=== PATIENT | male | born 1930 | race Caucasian/White ===

== ENCOUNTER 2016-10-02 17:37 | Emergency (ER) | payer MEDICARE, BC ==
[~2016-10-02] VITALS: Ht 175.3 cm; Wt 86.0 kg
[~2016-10-02 17:37] MED LIST: ASPI-1159 PO; ATOR20TA65 PO; CHOL100026 GT; MULT-1146 PO; OCD PO
[2016-10-03] MEDS ORDERED: ACETAMINOPHEN 325MG TABLET PO ONE
[2016-10-03 00:39] LABS: BASOPHILS % 1.1 % (0.0-2.0); EOSINOPHILS % 2.2 % (0.0-5.0); HEMATOCRIT. 35.5 % (42.0-52.0); HEMOGLOBIN. 11.9 g/dL (14.0-18.0); LYMPHOCYTES % 18.2 % (20.0-50.0); MEAN CORPUSCULAR VOLUME 92.3 fL (80.0-94.0); MEAN PLATELET VOLUME 9.4 fl (7.4-10.4); MONOCYTES % 9.3 % (2.0-8.0); NEUTROPHILS % 69.2 % (40.0-76.0); PLATELET 198 x1000/uL (130-400); RED BLOOD CELL COUNT 3.85 mill/uL (4.7-6.1); RED CELL DISTRIBUTION WIDTH 13.9 % (11.6-14.6)
[2016-10-03 00:53] LABS: CHLORIDE 105 mEq/L (98-107)
[2016-10-03 01:01] LABS: CARBON DIOXIDE 25 mEq/L (21-32)
[2016-10-03 03:01] VITALS: BP 145/59
== END 2016-10-03 04:25 | disposition home or self-care (01) ==
LOC: ER 22:02
DX: M70.31 Other bursitis of elbow, right elbow (principal); Y93.9 Activity, unspecified; I10 Essential (primary) hypertension; E78.00 Pure hypercholesterolemia, unspecified; Z79.82 Long term (current) use of aspirin; Z79.899 Other long term (current) drug therapy
CPT/HCPCS: 36415; 73080; 80048; 84550; 85025; 85651; 99285

== ENCOUNTER 2017-03-22 07:01 | Day surgery (SDC) | payer BC, MEDICARE ==
[~2017-03-22] VITALS: Ht 33 cm; Wt 0.5 kg
[~2017-03-22 07:01] MED LIST changes: -CHOL100026 GT; +CHOL100044 GT
[2017-03-22] MEDS ORDERED: NICARDIPINE 100MCG/ML 10ML VIAL (CATH LAB) IV ONE (09:56)
[2017-03-22] MEDS ORDERED: NITROGLYCERIN 50MCG/ML 10ML VIAL (CATH LAB) IV ONE (09:56)
[2017-03-22] MEDS ORDERED: HEPARIN SODIUM 1,000 UNIT/1ML VIAL IV ONE (09:56)
[2017-03-22] MEDS ORDERED: NEBI5TAB3 PO (10:51)
[2017-03-22] MEDS ORDERED: AMLO2.5T45 PO (10:52)
[2017-03-22 11:11] LABS: BASOPHILS % 0.9 % (0.0-2.0); EOSINOPHILS % 0.9 % (0.0-5.0); HEMATOCRIT. 40.4 % (42.0-52.0); HEMOGLOBIN. 13.3 g/dL (14.0-18.0); LYMPHOCYTES % 24.3 % (20.0-50.0); MEAN CORPUSCULAR HEMOGLOBIN 30.7 pg (28.0-32.0); MEAN CORPUSCULAR VOLUME 93.1 fL (80.0-94.0); MEAN PLATELET VOLUME 8.8 fl (7.4-10.4); MONOCYTES % 5.3 % (2.0-8.0); NEUTROPHILS % 68.6 % (40.0-76.0); PLATELET 235 x1000/uL (130-400); RED BLOOD CELL COUNT 4.34 mill/uL (4.7-6.1); RED CELL DISTRIBUTION WIDTH 13.6 % (11.6-14.6)
[2017-03-22 11:19] LABS: PARTIAL THROMBOPLASTIN TIME 27.7 sec (23.4-31.0); PROTHROMBIN TIME 10.6 sec (9.4-11.6)
[2017-03-22 11:22] LABS: CARBON DIOXIDE 29 mEq/L (21-32); CHLORIDE 106 mEq/L (98-107)
[2017-03-22] MEDS ORDERED: MIDAZOLAM HCL 2 MG/2 ML VIAL ONE (11:50)
[2017-03-22] MEDS ORDERED: ASPIRIN/SOD BICARB/CITRIC ACID 324MG TAB EFF ONE (11:51)
[2017-03-22] MEDS ORDERED: IODIXANOL 320MG/ML 100 ML BOTTLE IV ONE (11:51)
[2017-03-22] MEDS ORDERED: FENTANYL CITRATE/PF 50MCG/ML 2ML VIAL ONE (11:51)
[2017-03-22] MEDS ORDERED: LIDOCAINE HCL 1% 20ML VIAL (Pyxis) INJ ONE (11:53)
[2017-03-22] MEDS ORDERED: ACETAMINOPHEN 325MG TABLET PO PRN (12:30)
[2017-03-22] MEDS ORDERED: ONDANSETRON HCL 4MG/2ML VIAL IV PRN (12:30)
[2017-03-22] MEDS ORDERED: MORPHINE SULFATE 4 MG/ML CPJ (NOT FOR IM USE) IV PRN (12:30)
[2017-03-22] MEDS ORDERED: ATROPINE SULFATE 1MG/10ML SYR IV PRN (12:30)
== END 2017-03-22 16:05 | disposition home or self-care (01) ==
LOC: CCL 07:01
PROVIDERS: ATTEND Specialist
DX: I25.10 Atherosclerotic heart disease of native coronary artery without angina pectoris (principal); I11.9 Hypertensive heart disease without heart failure; I25.2 Old myocardial infarction; I49.3 Ventricular premature depolarization; I65.29 Occlusion and stenosis of unspecified carotid artery; I73.9 Peripheral vascular disease, unspecified; D63.8 Anemia in other chronic diseases classified elsewhere; E78.00 Pure hypercholesterolemia, unspecified; Z79.82 Long term (current) use of aspirin; Z87.891 Personal history of nicotine dependence; Z79.899 Other long term (current) drug therapy; Z98.890 Other specified postprocedural states
CPT/HCPCS: 36415; 80048; 85025; 85610; 85730; 93458; 99152; 99153; C1769; C1887; C1893; J1644; J2250; J3010; J3490; Q9967

== ENCOUNTER → 2019-09-17 | Outpatient (CLI) | payer MEDICARE ==
[~2019-09-17] MED LIST changes: +AMLO2.5T45 PO; +ASCO-339 MT; -ASPI-1159 PO; +ASPI-1497 PO; +NEBI5TAB3 PO; +OMEG1CAP94 PO; +UBID300C MT
== END | disposition home or self-care (01) ==
LOC: LAB 08:57
PROVIDERS: ATTEND Specialist
DX: R05 Cough (principal); Z20.828 Contact with and (suspected) exposure to other viral communicable diseases
CPT/HCPCS: C9803; U0003

== ENCOUNTER 2019-09-18 06:32 | Day surgery (SDC) | payer MEDICARE ==
[2019-09-18] MEDS ORDERED: MIDAZOLAM HCL 2 MG/2 ML VIAL ONE (08:02)
[2019-09-18] MEDS ORDERED: LIDOCAINE HCL 1% 20ML VIAL (Pyxis) INJ ONE (08:02)
[2019-09-18] MEDS ORDERED: FENTANYL CITRATE/PF 50MCG/ML 2ML VIAL ONE (08:02)
[2019-09-18] MEDS ORDERED: ASPIRIN/SOD BICARB/CITRIC ACID 324MG TAB EFF ONE (08:02)
[2019-09-18] MEDS ORDERED: IODIXANOL 320MG/ML 100 ML BOTTLE IV ONE (08:03)
[2019-09-18] MEDS ORDERED: ACETAMINOPHEN 325MG TABLET PO PRN (09:45)
[2019-09-18] MEDS ORDERED: MORPHINE SULFATE 2 MG/ML CPJ (NOT FOR IM USE) IV PRN (09:45)
[2019-09-18] MEDS ORDERED: NITROGLYCERIN 50MCG/ML 10ML VIAL (CATH LAB) IV ONE (09:49)
[2019-09-18] MEDS ORDERED: NICARDIPINE 100MCG/ML 10ML VIAL (CATH LAB) IV ONE (09:49)
[2019-09-18] MEDS ORDERED: HEPARIN SODIUM 1,000 UNIT/1ML VIAL IV ONE (09:49)
== END 2019-09-18 16:00 | disposition home or self-care (01) ==
LOC: CCL 06:32
PROVIDERS: ATTEND Specialist
DX: I25.10 Atherosclerotic heart disease of native coronary artery without angina pectoris (principal); Z79.82 Long term (current) use of aspirin; Z79.899 Other long term (current) drug therapy; Z82.49 Family history of ischemic heart disease and other diseases of the circulatory system
CPT/HCPCS: 93458; 93571; C1769; C1887; C1893; J1644; J2250; J3010; J3490; Q9967

== ENCOUNTER → 2019-09-24 | Outpatient (CLI) | payer MEDICARE ==
[~2019-09-24] MED LIST changes: +ICOS1CAP PO
== END | disposition home or self-care (01) ==
LOC: LAB 09:15
PROVIDERS: ATTEND Specialist
DX: R05 Cough (principal); Z20.828 Contact with and (suspected) exposure to other viral communicable diseases
CPT/HCPCS: C9803; U0003

== ENCOUNTER 2019-09-25 06:32 | Inpatient (IN) | payer MEDICARE ==
[2019-09-25] VITALS (8 sets, daily range): BP systolic 111–145; BP diastolic 55–67
[~2019-09-25] VITALS: Ht 170.2 cm; Wt 66.4 kg
[~2019-09-25 06:32] MED LIST changes: -ICOS1CAP PO
[2019-09-25] MEDS ORDERED: FENTANYL CITRATE/PF 50MCG/ML 2ML VIAL ONE (07:35)
[2019-09-25] MEDS ORDERED: LIDOCAINE HCL 1% 20ML VIAL (Pyxis) INJ ONE (07:35)
[2019-09-25] MEDS ORDERED: MIDAZOLAM HCL 2 MG/2 ML VIAL ONE ×2 (07:35→09:02)
[2019-09-25] MEDS ORDERED: ASPIRIN/SOD BICARB/CITRIC ACID 324MG TAB EFF ONE (07:36)
[2019-09-25] MEDS ORDERED: IODIXANOL 320MG/ML 100 ML BOTTLE IV ONE (07:36)
[2019-09-25] MEDS ORDERED: IOHEXOL-300 100 ML BOTTLE ONE (07:37)
[2019-09-25] MEDS ORDERED: ICOS1CAP PO (07:42)
[2019-09-25] MEDS ORDERED: CLOPIDOGREL 75MG TABLET ONE (09:01)
[2019-09-25] MEDS ORDERED: ATROPINE SULFATE 1MG/10ML SYR IV PRN (09:15)
[2019-09-25] MEDS ORDERED: MORPHINE SULFATE 2 MG/ML CPJ (NOT FOR IM USE) IV PRN (09:15)
[2019-09-25] MEDS ORDERED: ONDANSETRON HCL 4MG/2ML INJ IV PRN (09:15)
[2019-09-25] MEDS ORDERED: ACETAMINOPHEN 325MG TABLET PO PRN (09:15)
[2019-09-25] MEDS ORDERED: SODIUM CHLORIDE 0.45% 1,000 ML IV ONE (09:45)
[2019-09-25] MEDS: NEBIVOLOL HCL 5 MG TABLET PO SCH (09:45)
[2019-09-25] MEDS ORDERED: CLOPIDOGREL 75MG TABLET PO NR (09:45)
[2019-09-25] MEDS ORDERED: ATORVASTATIN CALCIUM 20MG TABLET PO SCH (21:00)
[2019-09-25] MEDS: AMLODIPINE 2.5MG TABLET PO SCH (21:11)
[2019-09-26] VITALS: BP 123/66
[2019-09-26 02:00] VITALS: BP 129/64
[2019-09-26 04:00] VITALS: BP 131/49
[2019-09-26 06:00] VITALS: BP 148/57
[2019-09-26 06:57] LABS: CHLORIDE 109 mEq/L (98-107)
[2019-09-26 07:10] LABS: BASOPHILS % 0.8 % (0.0-2.0); EOSINOPHILS % 4.1 % (0.0-5.0); HEMATOCRIT. 39.1 % (42.0-52.0); HEMOGLOBIN. 13.2 g/dL (14.0-18.0); LYMPHOCYTES % 24.1 % (20.0-50.0); MEAN CORPUSCULAR HEMOGLOBIN 31.9 pg (28.0-32.0); MEAN CORPUSCULAR VOLUME 94.6 fL (80.0-94.0); MEAN PLATELET VOLUME 9.4 fl (7.4-10.4); MONOCYTES % 7.6 % (2.0-8.0); NEUTROPHILS % 63.4 % (40.0-76.0); PLATELET 180 x1000/uL (130-400); RED BLOOD CELL COUNT 4.14 mill/uL (4.7-6.1); RED CELL DISTRIBUTION WIDTH 13.2 % (11.6-14.6)
[2019-09-26 08:00] VITALS: BP 131/67
[2019-09-26] MEDS: NEBIVOLOL HCL 5 MG TABLET PO SCH (08:35)
[2019-09-26] MEDS: AMLODIPINE 2.5MG TABLET PO SCH (08:35)
[2019-09-26] MEDS ORDERED: ASPIRIN 81MG TABLET PO SCH (09:00)
[2019-09-26] MEDS ORDERED: CLOPIDOGREL 75MG TABLET PO SCH (09:00)
[2019-09-26 10:00] VITALS: BP 150/70
== END 2019-09-26 12:52 | disposition home or self-care (01) | DRG 247 ==
LOC: CCL 06:32 → 3WST 06:33
PROVIDERS: ADMIT Specialist; ATTEND Specialist
PROC: 027034Z Dilation of Coronary Artery, One Artery with Drug-eluting Intraluminal Device, Percutaneous Approach (ICD-10-PCS; principal; 2019-09-25)
PROC: 4A023N7 Measurement of Cardiac Sampling and Pressure, Left Heart, Percutaneous Approach (ICD-10-PCS; 2019-09-25)
PROC: B2101ZZ Fluoroscopy of Single Coronary Artery using Low Osmolar Contrast (ICD-10-PCS; 2019-09-25)
PROC: 4A033BC Measurement of Arterial Pressure, Coronary, Percutaneous Approach (ICD-10-PCS; 2019-09-25)
DX: I25.10 Atherosclerotic heart disease of native coronary artery without angina pectoris (principal); I49.3 Ventricular premature depolarization; I10 Essential (primary) hypertension; I70.209 Unspecified atherosclerosis of native arteries of extremities, unspecified extremity; E78.5 Hyperlipidemia, unspecified; Z79.899 Other long term (current) drug therapy; Z79.82 Long term (current) use of aspirin
CPT/HCPCS: 36415; 80048; 85025; 85347; 92928; 93005; 93454; C1760; C1769; C1874; C1887; C1893; J1644; J2250; J3010; J3490; Q9967

== ENCOUNTER 2021-02-21 20:54 | Inpatient (IN) | payer MEDICARE ==
[~2021-02-21] VITALS: Ht 177.8 cm; Wt 86.2 kg
[~2021-02-21 20:54] MED LIST changes: +ICOS1CAP PO
[2021-02-21] MEDS ORDERED: ACETAMINOPHEN WITH CODEINE 300/30MG TABLET PO ONE (21:00)
[2021-02-21 23:14] LABS: BASOPHILS % 0.4 % (0.0-2.0); EOSINOPHILS % 1.3 % (0.0-5.0); HEMATOCRIT. 39.4 % (42.0-52.0); LYMPHOCYTES % 8.8 % (20.0-50.0); MEAN CORPUSCULAR HEMOGLOBIN 31.3 pg (28.0-32.0); MEAN CORPUSCULAR VOLUME 94.8 fL (80.0-94.0); MEAN PLATELET VOLUME 8.6 fl (7.4-10.4); MONOCYTES % 4.6 % (2.0-8.0); NEUTROPHILS % 84.9 % (40.0-76.0); PLATELET 182 x1000/uL (130-400); RED BLOOD CELL COUNT 4.15 mill/uL (4.7-6.1)
[2021-02-21 23:18] LABS: CHLORIDE 115 mEq/L (98-107)
[2021-02-22 00:12] LABS: CLARITY URINE CLEAR (CLEAR); COLOR URINE YELLOW (YELLOW); KETONES URINE NEGATIVE (NEGATIVE); LEUKOCYTE ESTERASE URINE NEGATIVE (NEGATIVE); NITRITE URINE NEGATIVE (NEGATIVE); OCCULT BLOOD URINE NEGATIVE (NEGATIVE); PH URINE 6.5 (4.5-8.0); PROTEIN URINE NEGATIVE (NEGATIVE); SPECIFIC GRAVITY URINE 1.014 (1.005-1.030); UROBILINOGEN URINE 0.2 E.U./dL (0.2-1.0)
[2021-02-22] MEDS ORDERED: CLONIDINE 0.1MG TABLET PO PRN (05:15)
[2021-02-22 05:20] VITALS: BP 150/67
[2021-02-22] MEDS: DEXT 5%/0.9% NACL 1,000 ML IV SCH ×2 (06:33→21:48)
[2021-02-22 08:00] VITALS: BP 150/65
[2021-02-22] MEDS: MORPHINE SULFATE 2 MG/ML CPJ (NOT FOR IM USE) IV PRN ×3 (08:39→18:49)
[2021-02-22] MEDS: ENOXAPARIN 40MG/0.4ML SYR SUBCUT SCH (09:00)
[2021-02-22] MEDS ORDERED: NEBIVOLOL HCL 5 MG TABLET PO SCH (11:00)
[2021-02-22] MEDS ORDERED: CHOLECALCIFEROL (D3) 1000 UNIT TABLET PO SCH (11:00)
[2021-02-22] MEDS ORDERED: ASCORBIC ACID 500 MG TABLET PO SCH (11:00)
[2021-02-22] MEDS: CHOLECALCIFEROL (D3) 1000 UNIT TABLET PO SCH (11:50)
[2021-02-22] MEDS: AMLODIPINE 2.5MG TABLET PO SCH ×2 (11:50→21:48)
[2021-02-22] MEDS: ASCORBIC ACID 500 MG TABLET PO SCH (11:50)
[2021-02-22] MEDS: CALCIUM CARBONATE/VITAMIN D3 500MG TABLET PO SCH (11:51)
[2021-02-22] MEDS: NEBIVOLOL HCL 5 MG TABLET PO SCH (11:51)
[2021-02-22 12:00] VITALS: BP 99/56
[2021-02-22 12:17] LABS: BASOPHILS % 0.7 % (0.0-2.0); HEMOGLOBIN. 12.7 g/dL (14.0-18.0); LYMPHOCYTES % 14.6 % (20.0-50.0); MEAN CORPUSCULAR HEMOGLOBIN 31.2 pg (28.0-32.0); MEAN CORPUSCULAR VOLUME 93.8 fL (80.0-94.0); MEAN PLATELET VOLUME 8.7 fl (7.4-10.4); MONOCYTES % 7.8 % (2.0-8.0); NEUTROPHILS % 73.9 % (40.0-76.0); PLATELET 175 x1000/uL (130-400); RED BLOOD CELL COUNT 4.05 mill/uL (4.7-6.1)
[2021-02-22 12:22] LABS: CHLORIDE 112 mEq/L (98-107)
[2021-02-22 16:00] VITALS: BP 140/51
[2021-02-22] MEDS ORDERED: AMLODIPINE 2.5MG TABLET PO SCH (17:00)
[2021-02-22] MEDS ORDERED: prosvent (19:31)
[2021-02-22] MEDS ORDERED: PRAV80TA21 MT (19:31)
[2021-02-22] MEDS ORDERED: CLOP75TA33 PO (19:31)
[2021-02-22] MEDS ORDERED: NON FORMULARY PATIENT HOME MED XX SCH (19:45)
[2021-02-22 20:00] VITALS: BP 146/53
[2021-02-22] MEDS ORDERED: ATORVASTATIN CALCIUM 20MG TABLET PO SCH ×2 (21:00)
[2021-02-23] VITALS: BP 140/57
[2021-02-23 04:00] VITALS: BP 103/64
[2021-02-23] MEDS ORDERED: NALOXONE HCL 0.4MG/ML VIAL IV PRN (07:15)
[2021-02-23 07:34] LABS: BASOPHILS % 0.8 % (0.0-2.0); EOSINOPHILS % 7.4 % (0.0-5.0); HEMATOCRIT. 36.5 % (42.0-52.0); HEMOGLOBIN. 12.4 g/dL (14.0-18.0); LYMPHOCYTES % 15.4 % (20.0-50.0); MEAN CORPUSCULAR HEMOGLOBIN 32.1 pg (28.0-32.0); MEAN CORPUSCULAR VOLUME 94.8 fL (80.0-94.0); MEAN PLATELET VOLUME 9.2 fl (7.4-10.4); MONOCYTES % 9.5 % (2.0-8.0); NEUTROPHILS % 66.9 % (40.0-76.0); PLATELET 160 x1000/uL (130-400); RED BLOOD CELL COUNT 3.86 mill/uL (4.7-6.1); RED CELL DISTRIBUTION WIDTH 13.1 % (11.6-14.6)
[2021-02-23 07:57] LABS: CHLORIDE 111 mEq/L (98-107)
[2021-02-23 08:00] VITALS: BP 148/65
[2021-02-23] MEDS: MORPHINE SULFATE 2 MG/ML CPJ (NOT FOR IM USE) IV PRN ×2 (08:13→12:29)
[2021-02-23] MEDS: ENOXAPARIN 40MG/0.4ML SYR SUBCUT SCH (09:00)
[2021-02-23] MEDS: CALCIUM CARBONATE/VITAMIN D3 500MG TABLET PO SCH (09:19)
[2021-02-23] MEDS: ASCORBIC ACID 500 MG TABLET PO SCH (09:20)
[2021-02-23] MEDS: AMLODIPINE 2.5MG TABLET PO SCH ×2 (09:20→20:41)
[2021-02-23] MEDS: CHOLECALCIFEROL (D3) 1000 UNIT TABLET PO SCH (09:20)
[2021-02-23] MEDS: NEBIVOLOL HCL 5 MG TABLET PO SCH (09:20)
[2021-02-23 12:00] VITALS: BP 128/73
[2021-02-23] MEDS: DEXT 5%/0.9% NACL 1,000 ML IV SCH ×2 (14:35→20:42)
[2021-02-23 16:00] VITALS: BP 137/62
[2021-02-23 20:00] VITALS: BP 152/71
[2021-02-23 22:07] LABS: INR 1.1; PROTHROMBIN TIME 11.3 sec (9.6-11.0)
[2021-02-24] VITALS: BP 163/60
[2021-02-24 04:00] VITALS: BP 141/63
[2021-02-24] MEDS ORDERED: BACITRACIN 15GM TUBE TOP ONE (06:51)
[2021-02-24] MEDS ORDERED: LIDOCAINE HCL/EPINEPHRINE 1%-EPI 1:100,000 20 ML VIAL ONE (06:51)
[2021-02-24] MEDS ORDERED: POLYMYXIN B SULFATE 500000 UNITS/VIAL ONE (06:52)
[2021-02-24] MEDS ORDERED: VANCOMYCIN HCL 1 GM/VIAL ONE (06:52)
[2021-02-24] MEDS ORDERED: SKIN ADHESIVE 0.7 GM EA TOP ONE (06:53)
[2021-02-24] MEDS ORDERED: LIDOCAINE HCL 1% 10 MG/ML 10ML VIAL ONE (07:32)
[2021-02-24] MEDS ORDERED: MIDAZOLAM HCL 2 MG/2 ML VIAL ONE (07:32)
[2021-02-24] MEDS ORDERED: FENTANYL CITRATE/PF 50MCG/ML 2ML VIAL ONE (07:32)
[2021-02-24] MEDS ORDERED: PROPOFOL 200MG/20ML VIAL IV ONE (07:32)
[2021-02-24] MEDS ORDERED: CEFAZOLIN SODIUM 1000MG/VIAL ONE (07:57)
[2021-02-24] MEDS ORDERED: EPHEDRINE SULFATE 50MG/ML VIAL ONE (08:42)
[2021-02-24] MEDS: AMLODIPINE 2.5MG TABLET PO SCH ×2 (09:00→21:00)
[2021-02-24] MEDS: ASCORBIC ACID 500 MG TABLET PO SCH (09:00)
[2021-02-24] MEDS: CHOLECALCIFEROL (D3) 1000 UNIT TABLET PO SCH (09:00)
[2021-02-24] MEDS ORDERED: FENTANYL CITRATE/PF 50MCG/ML 2ML VIAL IV PRN (09:00)
[2021-02-24] MEDS ORDERED: HYDROMORPHONE HCL/PF 2MG/ML CPJ IV PRN (09:00)
[2021-02-24] MEDS: ENOXAPARIN 40MG/0.4ML SYR SUBCUT SCH (09:00)
[2021-02-24] MEDS: CALCIUM CARBONATE/VITAMIN D3 500MG TABLET PO SCH (09:00)
[2021-02-24] MEDS: NEBIVOLOL HCL 5 MG TABLET PO SCH (09:00)
[2021-02-24] MEDS ORDERED: ONDANSETRON HCL 4MG/2ML INJ IV PRN (09:00)
[2021-02-24 12:00] VITALS: BP 119/68
[2021-02-24] MEDS ORDERED: CEFAZOLIN SODIUM 1000MG/VIAL IV SCH (14:00)
[2021-02-24] MEDS: CEFAZOLIN 1000MG PREMIX 50 ML IV SCH ×2 (14:41→21:47)
[2021-02-24 16:00] VITALS: BP 115/56
[2021-02-24 20:00] VITALS: BP 112/56
[2021-02-24] MEDS: DEXT 5%/0.9% NACL 1,000 ML IV SCH (22:48)
[2021-02-25] VITALS: BP 123/65
[2021-02-25 04:00] VITALS: BP 115/61
[2021-02-25] MEDS: CEFAZOLIN 1000MG PREMIX 50 ML IV SCH ×3 (05:32→21:52)
[2021-02-25] MEDS: HYDROCODONE/ACETAMINOPHEN 5/325MG TABLET PO PRN ×3 (05:33→22:04)
[2021-02-25 08:00] VITALS: BP 111/51
[2021-02-25] MEDS: CHOLECALCIFEROL (D3) 1000 UNIT TABLET PO SCH (09:11)
[2021-02-25] MEDS: ASCORBIC ACID 500 MG TABLET PO SCH (09:11)
[2021-02-25] MEDS: CALCIUM CARBONATE/VITAMIN D3 500MG TABLET PO SCH (09:11)
[2021-02-25] MEDS: ASPIRIN 81MG EC TABLET PO SCH (09:11)
[2021-02-25] MEDS: NEBIVOLOL HCL 5 MG TABLET PO SCH (09:12)
[2021-02-25] MEDS: AMLODIPINE 2.5MG TABLET PO SCH ×2 (09:13→21:51)
[2021-02-25] MEDS: ENOXAPARIN 40MG/0.4ML SYR SUBCUT SCH (09:14)
[2021-02-25 12:00] VITALS: BP 114/54
[2021-02-25 16:00] VITALS: BP 103/45
[2021-02-25] MEDS: DEXT 5%/0.9% NACL 1,000 ML IV SCH (16:52)
[2021-02-25 20:00] VITALS: BP 134/53
[2021-02-25 20:36] LABS: EOSINOPHILS % 7.4 % (0.0-5.0); HEMATOCRIT. 30.6 % (42.0-52.0); HEMOGLOBIN. 10.2 g/dL (14.0-18.0); LYMPHOCYTES % 20.4 % (20.0-50.0); MEAN CORPUSCULAR HEMOGLOBIN 31.7 pg (28.0-32.0); MEAN CORPUSCULAR VOLUME 95.5 fL (80.0-94.0); MEAN PLATELET VOLUME 9.8 fl (7.4-10.4); MONOCYTES % 10.8 % (2.0-8.0); NEUTROPHILS % 60.4 % (40.0-76.0); PLATELET 148 x1000/uL (130-400); RED BLOOD CELL COUNT 3.21 mill/uL (4.7-6.1); RED CELL DISTRIBUTION WIDTH 12.9 % (11.6-14.6)
[2021-02-26] VITALS: BP 119/50
[2021-02-26 00:53] LABS: CLARITY URINE CLEAR (CLEAR); COLOR URINE YELLOW (YELLOW); KETONES URINE NEGATIVE (NEGATIVE); LEUKOCYTE ESTERASE URINE NEGATIVE (NEGATIVE); NITRITE URINE NEGATIVE (NEGATIVE); OCCULT BLOOD URINE NEGATIVE (NEGATIVE); PROTEIN URINE NEGATIVE (NEGATIVE); SPECIFIC GRAVITY URINE 1.023 (1.005-1.030)
[2021-02-26 04:00] VITALS: BP 116/50
[2021-02-26] MEDS: CEFAZOLIN 1000MG PREMIX 50 ML IV SCH (05:28)
[2021-02-26] MEDS: HYDROCODONE/ACETAMINOPHEN 5/325MG TABLET PO PRN ×2 (05:37→10:45)
[2021-02-26 07:09] LABS: EOSINOPHILS % 8.4 % (0.0-5.0); HEMATOCRIT. 24.7 % (42.0-52.0); HEMOGLOBIN. 8.7 g/dL (14.0-18.0); LYMPHOCYTES % 17.1 % (20.0-50.0); MEAN CORPUSCULAR HEMOGLOBIN 32.9 pg (28.0-32.0); MEAN CORPUSCULAR VOLUME 92.9 fL (80.0-94.0); MEAN PLATELET VOLUME 9.4 fl (7.4-10.4); MONOCYTES % 10.8 % (2.0-8.0); NEUTROPHILS % 62.7 % (40.0-76.0); PLATELET 156 x1000/uL (130-400); RED BLOOD CELL COUNT 2.65 mill/uL (4.7-6.1); RED CELL DISTRIBUTION WIDTH 12.8 % (11.6-14.6)
[2021-02-26 08:00] VITALS: BP 128/48
[2021-02-26] MEDS: ASCORBIC ACID 500 MG TABLET PO SCH (09:14)
[2021-02-26] MEDS: CHOLECALCIFEROL (D3) 1000 UNIT TABLET PO SCH (09:15)
[2021-02-26] MEDS: CALCIUM CARBONATE/VITAMIN D3 500MG TABLET PO SCH (09:15)
[2021-02-26] MEDS: DEXT 5%/0.9% NACL 1,000 ML IV SCH (09:15)
[2021-02-26] MEDS: ASPIRIN 81MG EC TABLET PO SCH (09:15)
[2021-02-26] MEDS: AMLODIPINE 2.5MG TABLET PO SCH ×2 (09:15→21:51)
[2021-02-26] MEDS: NEBIVOLOL HCL 5 MG TABLET PO SCH (09:15)
[2021-02-26] MEDS: ENOXAPARIN 40MG/0.4ML SYR SUBCUT SCH (09:16)
[2021-02-26 12:00] VITALS: BP 129/64
[2021-02-26 16:00] VITALS: BP 115/47
[2021-02-26] MEDS ORDERED: AMLO2.5T45 PO (17:17)
[2021-02-26] MEDS ORDERED: ASPI-1406 PO (17:17)
[2021-02-26] MEDS ORDERED: CHOL-36 PO (17:17)
[2021-02-26] MEDS ORDERED: ASCO500T20 PO (17:17)
[2021-02-26] MEDS ORDERED: NEBI5TAB3 PO (17:17)
[2021-02-26] MEDS ORDERED: OCD PO (17:17)
[2021-02-26 17:53] LABS: HEMATOCRIT 26.4 % (42.0-52.0); HEMOGLOBIN 9.1 g/dL (14.0-18.0)
[2021-02-26 18:31] LABS: VITAMIN B12 SERUM 248 pg/mL (211-911)
[2021-02-26 20:00] VITALS: BP 128/44
[2021-02-27] VITALS: BP 116/74
[2021-02-27] MEDS: DEXT 5%/0.9% NACL 1,000 ML IV SCH ×2 (02:44→18:19)
[2021-02-27 04:00] VITALS: BP 125/49
[2021-02-27 06:40] LABS: CHLORIDE 109 mEq/L (98-107)
[2021-02-27 07:12] LABS: BASOPHILS % 0.9 % (0.0-2.0); EOSINOPHILS % 5.9 % (0.0-5.0); HEMOGLOBIN. 8.7 g/dL (14.0-18.0); LYMPHOCYTES % 17.9 % (20.0-50.0); MEAN CORPUSCULAR HEMOGLOBIN 31.5 pg (28.0-32.0); MEAN CORPUSCULAR VOLUME 93.9 fL (80.0-94.0); MEAN PLATELET VOLUME 9.5 fl (7.4-10.4); MONOCYTES % 9.2 % (2.0-8.0); NEUTROPHILS % 66.1 % (40.0-76.0); PLATELET 192 x1000/uL (130-400); RED BLOOD CELL COUNT 2.77 mill/uL (4.7-6.1); RED CELL DISTRIBUTION WIDTH 12.8 % (11.6-14.6)
[2021-02-27 08:00] VITALS: BP 113/50
[2021-02-27] MEDS: NEBIVOLOL HCL 5 MG TABLET PO SCH (09:06)
[2021-02-27] MEDS: ASPIRIN 81MG EC TABLET PO SCH (09:06)
[2021-02-27] MEDS: ASCORBIC ACID 500 MG TABLET PO SCH (09:06)
[2021-02-27] MEDS: AMLODIPINE 2.5MG TABLET PO SCH ×2 (09:06→20:51)
[2021-02-27] MEDS: CHOLECALCIFEROL (D3) 1000 UNIT TABLET PO SCH (09:06)
[2021-02-27] MEDS: CALCIUM CARBONATE/VITAMIN D3 500MG TABLET PO SCH (09:07)
[2021-02-27] MEDS: HYDROCODONE/ACETAMINOPHEN 5/325MG TABLET PO PRN (09:08)
[2021-02-27 12:00] VITALS: BP 97/45
[2021-02-27] MEDS: CLOPIDOGREL 75MG TABLET PO SCH (15:52)
[2021-02-27 16:00] VITALS: BP 102/50
[2021-02-27 20:00] VITALS: BP 145/97
[2021-02-28] VITALS: BP 134/58
[2021-02-28 04:00] VITALS: BP 144/51
[2021-02-28 08:00] VITALS: BP 138/66
[2021-02-28] MEDS: CHOLECALCIFEROL (D3) 1000 UNIT TABLET PO SCH (08:59)
[2021-02-28] MEDS: ASCORBIC ACID 500 MG TABLET PO SCH (08:59)
[2021-02-28] MEDS: CLOPIDOGREL 75MG TABLET PO SCH (08:59)
[2021-02-28] MEDS: AMLODIPINE 2.5MG TABLET PO SCH ×2 (09:00→20:58)
[2021-02-28] MEDS: ASPIRIN 81MG EC TABLET PO SCH (09:00)
[2021-02-28] MEDS: NEBIVOLOL HCL 5 MG TABLET PO SCH (09:00)
[2021-02-28] MEDS: CALCIUM CARBONATE/VITAMIN D3 500MG TABLET PO SCH (09:01)
[2021-02-28] MEDS: DEXT 5%/0.9% NACL 1,000 ML IV SCH (10:19)
[2021-02-28] MEDS ORDERED: LACTULOSE 20G/30ML UDC PO NR (10:45)
[2021-02-28] MEDS ORDERED: DOCUSATE SODIUM 100MG CAPSULE PO NR (10:45)
[2021-02-28 12:00] VITALS: BP 110/51
[2021-02-28 16:00] VITALS: BP 145/63
[2021-02-28 20:00] VITALS: BP 100/61
[2021-03-01] VITALS (8 sets, daily range): BP systolic 116–135; BP diastolic 48–85
[2021-03-01] MEDS: DEXT 5%/0.9% NACL 1,000 ML IV SCH ×2 (05:13→20:51)
[2021-03-01] MEDS: ASPIRIN 81MG EC TABLET PO SCH (09:23)
[2021-03-01] MEDS: CALCIUM CARBONATE/VITAMIN D3 500MG TABLET PO SCH (09:23)
[2021-03-01] MEDS: CHOLECALCIFEROL (D3) 1000 UNIT TABLET PO SCH (09:23)
[2021-03-01] MEDS: ASCORBIC ACID 500 MG TABLET PO SCH (09:23)
[2021-03-01] MEDS: AMLODIPINE 2.5MG TABLET PO SCH ×2 (09:24→20:50)
[2021-03-01] MEDS: NEBIVOLOL HCL 5 MG TABLET PO SCH (09:25)
[2021-03-01] MEDS: CLOPIDOGREL 75MG TABLET PO SCH (09:25)
[2021-03-01 23:55] LABS: BASOPHILS % 1.3 % (0.0-2.0); EOSINOPHILS % 5.4 % (0.0-5.0); HEMATOCRIT. 26.4 % (42.0-52.0); HEMOGLOBIN. 8.9 g/dL (14.0-18.0); LYMPHOCYTES % 19.7 % (20.0-50.0); MEAN CORPUSCULAR HEMOGLOBIN 31.4 pg (28.0-32.0); MEAN PLATELET VOLUME 8.1 fl (7.4-10.4); MONOCYTES % 10.3 % (2.0-8.0); NEUTROPHILS % 63.3 % (40.0-76.0); PLATELET 304 x1000/uL (130-400); RED BLOOD CELL COUNT 2.84 mill/uL (4.7-6.1); RED CELL DISTRIBUTION WIDTH 12.8 % (11.6-14.6)
[2021-03-02] VITALS: BP 139/48
[2021-03-02 04:00] VITALS: BP 131/87
[2021-03-02 08:00] VITALS: BP 136/53
[2021-03-02] MEDS: ASPIRIN 81MG EC TABLET PO SCH (11:06)
[2021-03-02] MEDS: CHOLECALCIFEROL (D3) 1000 UNIT TABLET PO SCH (11:06)
[2021-03-02] MEDS: CALCIUM CARBONATE/VITAMIN D3 500MG TABLET PO SCH (11:07)
[2021-03-02] MEDS: CLOPIDOGREL 75MG TABLET PO SCH (11:07)
[2021-03-02] MEDS: AMLODIPINE 2.5MG TABLET PO SCH ×2 (11:07→21:09)
[2021-03-02] MEDS: ASCORBIC ACID 500 MG TABLET PO SCH (11:07)
[2021-03-02] MEDS: ACETAMINOPHEN 325MG TABLET PO PRN (11:08)
[2021-03-02] MEDS: NEBIVOLOL HCL 5 MG TABLET PO SCH (11:28)
[2021-03-02 12:00] VITALS: BP 124/95
[2021-03-02] MEDS: DEXT 5%/0.9% NACL 1,000 ML IV SCH (13:15)
[2021-03-02 16:00] VITALS: BP 135/79
[2021-03-02 20:00] VITALS: BP 146/55
[2021-03-02] MEDS ORDERED: ATORVASTATIN CALCIUM 40MG TABLET PO SCH (21:00)
[2021-03-03] VITALS: BP 130/55
[2021-03-03 04:00] VITALS: BP 136/52
[2021-03-03] MEDS: DEXT 5%/0.9% NACL 1,000 ML IV SCH ×2 (05:55→22:35)
[2021-03-03 08:00] VITALS: BP 133/54
[2021-03-03] MEDS: ASPIRIN 81MG EC TABLET PO SCH (09:27)
[2021-03-03] MEDS: ASCORBIC ACID 500 MG TABLET PO SCH (09:27)
[2021-03-03] MEDS: CALCIUM CARBONATE/VITAMIN D3 500MG TABLET PO SCH (09:27)
[2021-03-03] MEDS: CHOLECALCIFEROL (D3) 1000 UNIT TABLET PO SCH (09:27)
[2021-03-03] MEDS: AMLODIPINE 2.5MG TABLET PO SCH ×2 (09:28→21:42)
[2021-03-03] MEDS: NEBIVOLOL HCL 5 MG TABLET PO SCH (09:39)
[2021-03-03 12:00] VITALS: BP 129/54
[2021-03-03] MEDS: ACETAMINOPHEN 325MG TABLET PO PRN (12:07)
[2021-03-03 15:51] LABS: EOSINOPHILS % 3.2 % (0.0-5.0); HEMOGLOBIN. 9.8 g/dL (14.0-18.0); LYMPHOCYTES % 16.8 % (20.0-50.0); MEAN CORPUSCULAR HEMOGLOBIN 31.8 pg (28.0-32.0); MEAN CORPUSCULAR VOLUME 93.6 fL (80.0-94.0); MEAN PLATELET VOLUME 7.8 fl (7.4-10.4); MONOCYTES % 9.1 % (2.0-8.0); NEUTROPHILS % 69.9 % (40.0-76.0); PLATELET 403 x1000/uL (130-400); RED CELL DISTRIBUTION WIDTH 13.4 % (11.6-14.6)
[2021-03-03 16:00] VITALS: BP 123/54
[2021-03-03 20:00] VITALS: BP 129/56
[2021-03-03] MEDS: ATORVASTATIN CALCIUM 20MG TABLET PO SCH (21:39)
[2021-03-04] VITALS (7 sets, daily range): BP systolic 109–148; BP diastolic 53–59
[2021-03-04] MEDS ORDERED: *PATIENT'S OWN MEDICATION STORAGE XX SCH (08:00)
[2021-03-04] MEDS: CALCIUM CARBONATE/VITAMIN D3 500MG TABLET PO SCH (08:52)
[2021-03-04] MEDS: NEBIVOLOL HCL 5 MG TABLET PO SCH (08:52)
[2021-03-04] MEDS: ASCORBIC ACID 500 MG TABLET PO SCH (08:53)
[2021-03-04] MEDS: ASPIRIN 81MG EC TABLET PO SCH (08:53)
[2021-03-04] MEDS: AMLODIPINE 2.5MG TABLET PO SCH ×2 (08:53→21:26)
[2021-03-04] MEDS: CHOLECALCIFEROL (D3) 1000 UNIT TABLET PO SCH (08:57)
[2021-03-04] MEDS ORDERED: BRIMONIDINE 0.2% OPHTH DROPS 5ML BOTHEYE SCH (11:00)
[2021-03-04] MEDS ORDERED: LACTULOSE 20G/30ML UDC PO SCH (11:45)
[2021-03-04] MEDS: DOCUSATE SODIUM 100MG CAPSULE PO SCH ×2 (13:11→17:00)
[2021-03-04] MEDS ORDERED: DORZOLAMIDE 2% OPHTH 10 ML BOTTLE BOTHEYE SCH (14:00)
[2021-03-04] MEDS: DEXT 5%/0.9% NACL 1,000 ML IV SCH (15:15)
[2021-03-04] MEDS: ATORVASTATIN CALCIUM 20MG TABLET PO SCH (21:24)
[2021-03-04] MEDS: DORZOLAMIDE 2% OPHTH 10 ML BOTTLE RIGHTEYE SCH ×2 (21:26→21:47)
[2021-03-04] MEDS: LATANOPROST 0.005% OPHTH DROPS 2.5ML RIGHTEYE SCH (21:26)
[2021-03-05] VITALS: BP 122/51
[2021-03-05 04:00] VITALS: BP 131/54
[2021-03-05] MEDS: DORZOLAMIDE 2% OPHTH 10 ML BOTTLE RIGHTEYE SCH ×3 (05:34→23:12)
[2021-03-05] MEDS: DEXT 5%/0.9% NACL 1,000 ML IV SCH ×2 (07:55→23:12)
[2021-03-05] MEDS: ASPIRIN 81MG EC TABLET PO SCH (09:10)
[2021-03-05] MEDS: CALCIUM CARBONATE/VITAMIN D3 500MG TABLET PO SCH (09:10)
[2021-03-05] MEDS: NEBIVOLOL HCL 5 MG TABLET PO SCH (09:11)
[2021-03-05] MEDS: ASCORBIC ACID 500 MG TABLET PO SCH (09:11)
[2021-03-05] MEDS: DOCUSATE SODIUM 100MG CAPSULE PO SCH ×2 (09:11→17:00)
[2021-03-05] MEDS: CHOLECALCIFEROL (D3) 1000 UNIT TABLET PO SCH (09:11)
[2021-03-05] MEDS: AMLODIPINE 2.5MG TABLET PO SCH ×2 (09:12→23:08)
[2021-03-05] MEDS: BRIMONIDINE 0.2% OPHTH DROPS 5ML RIGHTEYE SCH ×2 (09:12→17:50)
[2021-03-05 12:00] VITALS: BP 107/44
[2021-03-05 16:00] VITALS: BP 124/57
[2021-03-05 20:00] VITALS: BP 119/56
[2021-03-05] MEDS: ATORVASTATIN CALCIUM 20MG TABLET PO SCH (23:00)
[2021-03-05] MEDS: LATANOPROST 0.005% OPHTH DROPS 2.5ML RIGHTEYE SCH (23:11)
[2021-03-06] VITALS (7 sets, daily range): BP systolic 119–146; BP diastolic 53–62
[2021-03-06] MEDS: NEBIVOLOL HCL 5 MG TABLET PO SCH (08:40)
[2021-03-06] MEDS: CHOLECALCIFEROL (D3) 1000 UNIT TABLET PO SCH (08:55)
[2021-03-06] MEDS: DOCUSATE SODIUM 100MG CAPSULE PO SCH ×2 (08:55→16:24)
[2021-03-06] MEDS: ASCORBIC ACID 500 MG TABLET PO SCH (08:55)
[2021-03-06] MEDS: CALCIUM CARBONATE/VITAMIN D3 500MG TABLET PO SCH (08:55)
[2021-03-06] MEDS: ASPIRIN 81MG EC TABLET PO SCH (08:55)
[2021-03-06] MEDS: AMLODIPINE 2.5MG TABLET PO SCH ×2 (08:56→21:36)
[2021-03-06] MEDS: BRIMONIDINE 0.2% OPHTH DROPS 5ML RIGHTEYE SCH ×2 (09:02→16:25)
[2021-03-06] MEDS: DORZOLAMIDE 2% OPHTH 10 ML BOTTLE RIGHTEYE SCH ×3 (13:10→21:36)
[2021-03-06] MEDS: ENOXAPARIN 30MG/0.3ML SYR SUBCUT SCH (16:20)
[2021-03-06] MEDS: DEXT 5%/0.9% NACL 1,000 ML IV SCH (17:15)
[2021-03-06] MEDS: LATANOPROST 0.005% OPHTH DROPS 2.5ML RIGHTEYE SCH (21:36)
[2021-03-06] MEDS: ATORVASTATIN CALCIUM 20MG TABLET PO SCH (21:36)
[2021-03-07] VITALS: BP 140/65
[2021-03-07 04:00] VITALS: BP 130/52
[2021-03-07] MEDS: DORZOLAMIDE 2% OPHTH 10 ML BOTTLE RIGHTEYE SCH ×3 (06:17→21:37)
[2021-03-07 08:00] VITALS: BP 152/67
[2021-03-07] MEDS: DOCUSATE SODIUM 100MG CAPSULE PO SCH ×2 (09:00→17:00)
[2021-03-07] MEDS: NEBIVOLOL HCL 5 MG TABLET PO SCH (09:09)
[2021-03-07] MEDS: ASCORBIC ACID 500 MG TABLET PO SCH (09:09)
[2021-03-07] MEDS: AMLODIPINE 2.5MG TABLET PO SCH (09:09)
[2021-03-07] MEDS: BRIMONIDINE 0.2% OPHTH DROPS 5ML RIGHTEYE SCH ×2 (09:09→17:42)
[2021-03-07] MEDS: ASPIRIN 81MG EC TABLET PO SCH (09:09)
[2021-03-07] MEDS: CALCIUM CARBONATE/VITAMIN D3 500MG TABLET PO SCH (09:09)
[2021-03-07] MEDS: CHOLECALCIFEROL (D3) 1000 UNIT TABLET PO SCH (09:09)
[2021-03-07] MEDS: DEXT 5%/0.9% NACL 1,000 ML IV SCH (10:03)
[2021-03-07 12:00] VITALS: BP 113/51
[2021-03-07] MEDS: ENOXAPARIN 30MG/0.3ML SYR SUBCUT SCH (15:36)
[2021-03-07 16:00] VITALS: BP 106/50
[2021-03-07 20:00] VITALS: BP 118/53
[2021-03-07] MEDS: AMLODIPINE 5MG TABLET PO SCH (21:00)
[2021-03-07] MEDS: ATORVASTATIN CALCIUM 20MG TABLET PO SCH (21:36)
[2021-03-07] MEDS: LATANOPROST 0.005% OPHTH DROPS 2.5ML RIGHTEYE SCH (21:37)
[2021-03-08] VITALS: BP 134/47
[2021-03-08] MEDS: DEXT 5%/0.9% NACL 1,000 ML IV SCH ×2 (02:49→19:23)
[2021-03-08 04:00] VITALS: BP 128/48
[2021-03-08] MEDS: DORZOLAMIDE 2% OPHTH 10 ML BOTTLE RIGHTEYE SCH ×3 (05:10→21:07)
[2021-03-08] MEDS: ACETAMINOPHEN 325MG TABLET PO PRN (05:21)
[2021-03-08 06:37] LABS: BASOPHILS % 0.8 % (0.0-2.0); EOSINOPHILS % 4.7 % (0.0-5.0); HEMATOCRIT. 27.5 % (42.0-52.0); HEMOGLOBIN. 9.5 g/dL (14.0-18.0); LYMPHOCYTES % 21.4 % (20.0-50.0); MEAN CORPUSCULAR HEMOGLOBIN 32.9 pg (28.0-32.0); MEAN CORPUSCULAR VOLUME 95.1 fL (80.0-94.0); MONOCYTES % 7.2 % (2.0-8.0); NEUTROPHILS % 65.9 % (40.0-76.0); PLATELET 483 x1000/uL (130-400); RED CELL DISTRIBUTION WIDTH 13.7 % (11.6-14.6)
[2021-03-08 08:00] VITALS: BP 153/65
[2021-03-08] MEDS: DOCUSATE SODIUM 100MG CAPSULE PO SCH ×2 (09:00→17:00)
[2021-03-08] MEDS: CALCIUM CARBONATE/VITAMIN D3 500MG TABLET PO SCH (09:53)
[2021-03-08] MEDS: NEBIVOLOL HCL 5 MG TABLET PO SCH (09:53)
[2021-03-08] MEDS: CHOLECALCIFEROL (D3) 1000 UNIT TABLET PO SCH (09:53)
[2021-03-08] MEDS: ASCORBIC ACID 500 MG TABLET PO SCH (09:54)
[2021-03-08] MEDS: ASPIRIN 81MG EC TABLET PO SCH (09:55)
[2021-03-08] MEDS: AMLODIPINE 5MG TABLET PO SCH ×2 (09:56→20:40)
[2021-03-08] MEDS: BRIMONIDINE 0.2% OPHTH DROPS 5ML RIGHTEYE SCH ×2 (09:56→17:52)
[2021-03-08] MEDS: ENOXAPARIN 30MG/0.3ML SYR SUBCUT SCH (13:21)
[2021-03-08 16:00] VITALS: BP 105/51
[2021-03-08 20:00] VITALS: BP 119/78
[2021-03-08] MEDS: LATANOPROST 0.005% OPHTH DROPS 2.5ML RIGHTEYE SCH (20:40)
[2021-03-08] MEDS: ATORVASTATIN CALCIUM 20MG TABLET PO SCH (20:40)
[2021-03-09] VITALS: BP 128/53
[2021-03-09 04:00] VITALS: BP 131/83
[2021-03-09] MEDS: DORZOLAMIDE 2% OPHTH 10 ML BOTTLE RIGHTEYE SCH ×3 (05:15→21:06)
[2021-03-09 07:38] LABS: BASOPHILS % 0.9 % (0.0-2.0); EOSINOPHILS % 4.6 % (0.0-5.0); HEMATOCRIT. 29.3 % (42.0-52.0); HEMOGLOBIN. 9.7 g/dL (14.0-18.0); LYMPHOCYTES % 20.1 % (20.0-50.0); MEAN CORPUSCULAR HEMOGLOBIN 31.1 pg (28.0-32.0); MEAN CORPUSCULAR VOLUME 94.2 fL (80.0-94.0); MEAN PLATELET VOLUME 7.9 fl (7.4-10.4); MONOCYTES % 7.2 % (2.0-8.0); NEUTROPHILS % 67.2 % (40.0-76.0); PLATELET 499 x1000/uL (130-400); RED BLOOD CELL COUNT 3.11 mill/uL (4.7-6.1); RED CELL DISTRIBUTION WIDTH 13.9 % (11.6-14.6)
[2021-03-09 07:38] LABS: CHLORIDE 109 mEq/L (98-107)
[2021-03-09 08:00] VITALS: BP 145/56
[2021-03-09] MEDS: ACETAMINOPHEN 325MG TABLET PO PRN (09:21)
[2021-03-09] MEDS: CHOLECALCIFEROL (D3) 1000 UNIT TABLET PO SCH (09:21)
[2021-03-09] MEDS: ASPIRIN 81MG EC TABLET PO SCH (09:21)
[2021-03-09] MEDS: ASCORBIC ACID 500 MG TABLET PO SCH (09:21)
[2021-03-09] MEDS: BRIMONIDINE 0.2% OPHTH DROPS 5ML RIGHTEYE SCH ×2 (09:21→16:40)
[2021-03-09] MEDS: DEXT 5%/0.9% NACL 1,000 ML IV SCH (09:21)
[2021-03-09] MEDS: AMLODIPINE 5MG TABLET PO SCH ×2 (09:22→20:25)
[2021-03-09] MEDS: DOCUSATE SODIUM 100MG CAPSULE PO SCH ×2 (09:22→16:40)
[2021-03-09] MEDS: NEBIVOLOL HCL 5 MG TABLET PO SCH (09:22)
[2021-03-09] MEDS: CALCIUM CARBONATE/VITAMIN D3 500MG TABLET PO SCH (09:22)
[2021-03-09 12:00] VITALS: BP 159/62
[2021-03-09] MEDS: ENOXAPARIN 30MG/0.3ML SYR SUBCUT SCH (14:30)
[2021-03-09 15:40] LABS: BASOPHILS % 0.7 % (0.0-2.0); EOSINOPHILS % 0.4 % (0.0-5.0); HEMATOCRIT. 32.8 % (42.0-52.0); HEMOGLOBIN. 10.5 g/dL (14.0-18.0); LYMPHOCYTES % 7.2 % (20.0-50.0); MEAN CORPUSCULAR HEMOGLOBIN 30.3 pg (28.0-32.0); MEAN CORPUSCULAR VOLUME 94.3 fL (80.0-94.0); MEAN PLATELET VOLUME 7.5 fl (7.4-10.4); MONOCYTES % 3.7 % (2.0-8.0); PLATELET 550 x1000/uL (130-400); RED BLOOD CELL COUNT 3.48 mill/uL (4.7-6.1)
[2021-03-09 15:43] LABS: CHLORIDE 106 mEq/L (98-107)
[2021-03-09 16:00] VITALS: BP 129/54
[2021-03-09 17:03] LABS: CLARITY URINE CLEAR (CLEAR); COLOR URINE YELLOW (YELLOW); KETONES URINE NEGATIVE (NEGATIVE); LEUKOCYTE ESTERASE URINE NEGATIVE (NEGATIVE); NITRITE URINE NEGATIVE (NEGATIVE); OCCULT BLOOD URINE NEGATIVE (NEGATIVE); PROTEIN URINE NEGATIVE (NEGATIVE); SPECIFIC GRAVITY URINE 1.005 (1.005-1.030); UROBILINOGEN URINE 0.2 E.U./dL (0.2-1.0)
[2021-03-09] MEDS ORDERED: ATOR20TA PO (17:15)
[2021-03-09] MEDS ORDERED: XALAO RIGHTEYE (17:15)
[2021-03-09] MEDS ORDERED: BRIM.2 RIGHTEYE (17:15)
[2021-03-09 20:00] VITALS: BP_SYST 148; BP_SYST 152; BP_SYST 154; BP_DIAS 54; BP_DIAS 57; BP_DIAS 63
[2021-03-09] MEDS: LATANOPROST 0.005% OPHTH DROPS 2.5ML RIGHTEYE SCH (20:24)
[2021-03-09] MEDS: ATORVASTATIN CALCIUM 20MG TABLET PO SCH (20:24)
[2021-03-10] VITALS: BP 137/54
[2021-03-10] MEDS: DEXT 5%/0.9% NACL 1,000 ML IV SCH ×2 (01:38→04:23)
[2021-03-10 04:00] VITALS: BP 137/53
[2021-03-10] MEDS: DORZOLAMIDE 2% OPHTH 10 ML BOTTLE RIGHTEYE SCH ×2 (05:18→13:27)
[2021-03-10 08:00] VITALS: BP 152/44
[2021-03-10] MEDS: NEBIVOLOL HCL 5 MG TABLET PO SCH ×2 (09:00→11:06)
[2021-03-10] MEDS: CALCIUM CARBONATE/VITAMIN D3 500MG TABLET PO SCH (09:41)
[2021-03-10] MEDS: DOCUSATE SODIUM 100MG CAPSULE PO SCH (09:41)
[2021-03-10] MEDS: ASCORBIC ACID 500 MG TABLET PO SCH (09:41)
[2021-03-10] MEDS: ASPIRIN 81MG EC TABLET PO SCH (09:42)
[2021-03-10] MEDS: CHOLECALCIFEROL (D3) 1000 UNIT TABLET PO SCH (09:42)
[2021-03-10] MEDS: AMLODIPINE 5MG TABLET PO SCH (09:43)
[2021-03-10] MEDS: BRIMONIDINE 0.2% OPHTH DROPS 5ML RIGHTEYE SCH (09:44)
[2021-03-10 12:00] VITALS: BP 129/60
[2021-03-10] MEDS: ENOXAPARIN 30MG/0.3ML SYR SUBCUT SCH (15:20)
[2021-03-10 16:00] VITALS: BP 128/53
[2021-03-10 16:41] VITALS: BP 128/53
== END 2021-03-10 17:07 | disposition home or self-care (01) | DRG 482 ==
LOC: ER 20:54 → 6EST 23:45 → ENRESERV 02-22 02:17
PROVIDERS: ADMIT Family Medicine; ATTEND Family Medicine
PROC: 0QS704Z Reposition Left Upper Femur with Internal Fixation Device, Open Approach (ICD-10-PCS; principal; 2021-02-24)
DX: S72.142A Displaced intertrochanteric fracture of left femur, initial encounter for closed fracture (principal); E78.5 Hyperlipidemia, unspecified; I10 Essential (primary) hypertension; I25.10 Atherosclerotic heart disease of native coronary artery without angina pectoris; R73.9 Hyperglycemia, unspecified; Z20.822 Contact with and (suspected) exposure to COVID-19; I49.3 Ventricular premature depolarization; W18.39XA Other fall on same level, initial encounter; I73.9 Peripheral vascular disease, unspecified; D64.9 Anemia, unspecified; Z87.81 Personal history of (healed) traumatic fracture; Z79.899 Other long term (current) drug therapy; Z79.82 Long term (current) use of aspirin; Y93.89 Activity, other specified; Y92.89 Other specified places as the place of occurrence of the external cause; Y99.8 Other external cause status; I51.7 Cardiomegaly
CPT/HCPCS: 36415; 71045; 73502; 73552; 73700; 74018; 76000; 80048; 80053; 80061; 81003; 82607; 82962; 83540; 83550; 83735; 84484; 85014; 85018; 85025; 85044; 86850; 86900; 87426; 93005; 93970; 97110; 97116; 97163; 97164; 97166; 97530; 97535; 99285; C1713; C1769; C1893; J0690; J1650; J2250; J2270; J2704; J3010; J3370; J3490; J7042